=== PATIENT | male | born 1995 | race Caucasian/White ===

== ENCOUNTER 2017-11-29 14:11 | Emergency (ER) | payer OTHER ==
--- NOTE | 2017-11-29 15:09 | EDPHY ---
H & P Time Seen by Provider: 11/29/17 15:01 HPI/ROS: CHIEF COMPLAINT: Vomited blood HISTORY OF PRESENT ILLNESS: Patient had extra alcohol last night, had an episode of vomiting at around midnight. Typically gets nausea with drinking alcohol which he attributes to his medications. He said it was"spurts"of blood which have not occurred since midnight, single episode. Normal bowel movements without melena or red blood per rectum. No abdominal pain. Not dizzy or lightheaded. Symptoms seemed moderate to severe at the time to the patient but have not reoccurred. REVIEW OF SYSTEMS: Eye: no change in vision ENT: no sore throat Cardiac: no chest pain or syncope Pulmonary: no cough or SOB Abdomen: HPI Musculoskeletal: no back pain Skin: no rash Neuro: no headache Constitutional: no fever : no urinary symptoms A comprehensive 10 point review of systems is otherwise negative aside from elements mentioned in the history of present illness. PAST MEDICAL HISTORY: Includes bipolar, Tourette's, eye surgery Social history: Alcohol last night as above General Appearance: Alert and conversant, cooperative. Eyes: No scleral icterus. ENT, Mouth: Slightly dry mucous membranes Respiratory: Normal respiratory effort, breath sounds equal, lungs are clear to auscultation. Cardiovascular: Regular rate and rhythm. Gastrointestinal: Abdomen is soft and non tender. Rectal exam shows brown stool sent to lab for Hemoccult, no melena or active bleeding. Neurological: Alert, face symmetric, normal motor and sensory in extremities. Skin: Warm and dry, no rashes. Musculoskeletal: No peripheral edema. Psychiatric: Not agitated. 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 Normal saline, check CBC and occult blood. 1551: Hematocrit normal, occult blood feces negative. Results discussed, stable for discharge. HR down to 70. Smoking Status: Never smoked Constitutional: Initial Vital Signs Temperature (C) 37.1 C 11/29/17 14:27 Heart Rate 101 H 11/29/17 14:27 Respiratory Rate 16 11/29/17 14:27 Blood Pressure 126/83 H 11/29/17 14:27 O2 Sat (%) 96 11/29/17 14:27 O2 Delivery Mode Room Air Allergies/Adverse Reactions: No Known Allergies Allergy (Unverified 11/29/17 14:33) Home Medications: Medication Instructions Recorded Abilify 11/29/17 LaMICtal 11/29/17 Wellbutrin Sr 11/29/17 Medical Decision Making Differential Diagnosis: Differential considered including but not limited to upper GI bleed, duodenal or gastric ulcer, varices, Sulema-Duval tear. - Data Points Laboratory Results: Laboratory Results 11/29/17 15:30 11/29/17 15:30 11/29/17 11/29/17 11/29/17 15:30 15:30 15:30 WBC 11.45 10^3/uL H 10^3/uL (3.80-9.50) RBC 5.24 10^6/uL 10^6/uL (4.40-6.38) Hgb 17.2 g/dL g/dL (13.7-17.5) Hct 47.0 % % (40.0-51.0) MCV 89.7 fL fL (81.5-99.8) MCH 32.8 pg pg (27.9-34.1) MCHC 36.6 g/dL g/dL (32.4-36.7) RDW 12.2 % % (11.5-15.2) Plt Count 228 10^3/uL 10^3/uL (150-400) MPV 8.2 fL L fL (8.7-11.7) Neut % (Auto) 27.9 % L % (39.3-74.2) Lymph % (Auto) 63.9 % H % (15.0-45.0) Rich % (Auto) 6.5 % % (4.5-13.0) Eos % (Auto) 0.6 % % (0.6-7.6) Baso % (Auto) 0.8 % % (0.3-1.7) Nucleat RBC Rel Count 0.0 % % (0.0-0.2) Absolute Neuts (auto) 3.19 10^3/uL 10^3/uL (1.70-6.50) Absolute Lymphs (auto) 7.32 10^3/uL H 10^3/uL (1.00-3.00) Absolute Monos (auto) 0.74 10^3/uL 10^3/uL (0.30-0.80) Absolute Eos (auto) 0.07 10^3/uL 10^3/uL (0.03-0.40) Absolute Basos (auto) 0.09 10^3/uL 10^3/uL (0.02-0.10) Absolute Nucleated RBC 0.00 10^3/uL 10^3/uL (0-0.01) Immature Gran % 0.3 % % (0.0-1.1) Immature Gran # 0.03 10^3/uL 10^3/uL (0.00-0.10) RBC/WBC/PLT Morphology TNP Atypical Lymphocytes 3+ H Platelet Estimate TNP Smear Review By Pending Sodium 141 mEq/L mEq/L (135-145) Potassium 4.5 mEq/L mEq/L (3.3-5.0) Chloride 104 mEq/L mEq/L (97-110) Carbon Dioxide 28 mEq/l mEq/l (22-31) Anion Gap 9 mEq/L mEq/L (6-14) BUN 14 mg/dL mg/dL (7-23) Creatinine 1.0 mg/dL mg/dL (0.7-1.3) Estimated GFR > 60 Glucose 89 mg/dL mg/dL (70-100) Calcium 9.6 mg/dL mg/dL (8.5-10.4) Stool Occult Bld Scrn NEGATIVE (NEGATIVE) Medications Given: Discontinued Medications Sodium Chloride (Ns) 1,000 mls @ 0 mls/hr IV EDNOW ONE; Wide Open PRN Reason: Protocol Stop: 11/29/17 15:30 Last Admin: 11/29/17 15:40 Dose: 1,000 mls Departure - Departure Disposition: Home, Routine, Self-Care Clinical Impression: Sulema-Duval tear Nausea & vomiting Qualifiers: Vomiting type: unspecified Vomiting Intractability: non-intractable Qualified Code(s): R11.2 - Nausea with vomiting, unspecified Condition: Good Instructions: Acute Nausea and Vomiting (ED), Sulema-Duval Syndrome (ED) Referrals: Abhijit Couch MD, FACG [Medical Doctor] - As per Instructions (if any symptoms next week; if you vomit bright red blood again, come right away to the ED)
[2017-11-29] MEDS ORDERED: NS 1,000 ML IV ONE (15:29)
[2017-11-29 15:41] LABS: PLATELET COUNT 228 10^3/uL (150-400)
[2017-11-29 16:13] VITALS: BP 125/63
== END 2017-11-29 16:10 | disposition home or self-care (01) ==
DX: K92.0 Hematemesis (principal); E86.9 Volume depletion, unspecified